=== PATIENT | male | born 1960 | race Caucasian/White ===

== ENCOUNTER 2020-09-15 13:38 | Outpatient (CLI) | payer BC | END 2020-09-15 13:39 | disposition home or self-care (01) | LOC: CSHRAD 13:38 | PROVIDERS: ATTEND Family Medicine | DX: M25.569 Pain in unspecified knee (principal); M13.862 Other specified arthritis, left knee; M13.861 Other specified arthritis, right knee | CPT/HCPCS: 73565 ==

== ENCOUNTER 2023-05-05 10:32 | Inpatient (IN) | payer BC ==
[2023-05-05] MEDS ORDERED: Furosemide 40 MG/4 ML VIAL ONE (11:30)
[2023-05-05] MEDS ORDERED: Nitroglycerin 2% Ointment 1 INCH/1 GM Packet ONE (11:30)
[2023-05-05 11:45] LABS: #Eosinphils 0.1 10x3/uL (0.0-0.5); #Monocytes 0.6 10x3/uL (0.0-1.1); #Neutrophils 6.5 10x3/uL (1.5-8.4); %Basophils 0.5 % (0.0-2.0); %Eosinophils 1.3 % (0.0-6.0); %Lymphocytes 12.6 % (18.0-47.0); %Monocytes 7.4 % (0.0-10.0); %Neutrophils 77.5 % (40.0-75.0); Hematocrit 46.4 % (38.8-50.0); Hemoglobin 14.1 g/dL (13.5-17.5); Mean Corpuscular HGB CONC 30.4 g/dL (32.0-36.0); Mean Corpuscular Hemoglobin 28.3 pg (27.0-33.0); Mean Platelet Volume 9.7 fl (7.4-10.4); Platelet Count 202 10x3/uL (150-450); Red Blood Cell (RBC) Count 4.99 10x6/uL (4.32-5.72); White Blood Cell (WBC) Count 8.4 10x3/uL (3.5-10.5)
[2023-05-05 11:53] LABS: ALT (SGPT) 21 U/L (8-55); AST (SGOT) 18 U/L (5-34); Albumin 4.1 g/dL (3.4-4.8); Alkaline Phosphatase 52 U/L (40-110); Anion Gap 14 mmol/L (10-20); BUN (Urea Nitrogen) 10 mg/dL (8.4-25.7); Bilirubin, Total 0.7 mg/dL (0.2-1.2); Calc. Creatinine Clearance 0 mL/min (70-130); Calcium 8.9 mg/dL (7.8-10.44); Carbon Dioxide 32 mmol/L (23-31); Chloride 101 mmol/L (98-107); Estimated GFR 103; Globulin 2.6 g/dL (2.4-3.5); Glucose 158 mg/dL (80-115); Potassium 4.5 mmol/L (3.5-5.1); Protein, Total 6.7 g/dL (5.8-8.1); Sodium 142 mmol/L (136-145)
[2023-05-05 11:57] LABS: Troponin I Less than 0.010 ng/mL (< 0.028)
[2023-05-05 12:58] LABS: SARS-CoV-2 NAA Rapid Test Not Detected (NotDetected)
[2023-05-05] MEDS ORDERED: Bisacodyl 5 MG TAB PO PRN (13:16)
[2023-05-05] MEDS ORDERED: Senokot S 8.6-50 MG TAB PO PRN (13:16)
[2023-05-05] MEDS ORDERED: HumaLOG 300 UNITS/3 ML VIAL SC PRN (13:41)
[2023-05-05] MEDS ORDERED: Dextrose 5% in Water 1,000 ML IV PRN (16:00)
[2023-05-05] MEDS ORDERED: Dextrose 50% Abboject 50 ML SYRINGE IVP PRN (16:00)
[2023-05-05] MEDS ORDERED: Glucagon 1 MG/ML KIT IM PRN (16:00)
[2023-05-05 16:33] VITALS: BMI 46.2
[2023-05-05] MEDS ORDERED: metFORMIN 500 MG TAB PO SCH ×2 (17:00→18:00)
[2023-05-05] MEDS ORDERED: Furosemide 20 MG/2 ML VIAL SLOW IVP SCH ×2 (17:30)
[2023-05-05] MEDS ORDERED: Acetaminophen 500 MG TAB PO PRN (17:57)
[2023-05-05] MEDS: Atorvastatin Calcium 10 MG TAB PO SCH (20:33)
[2023-05-05] MEDS: Famotidine 20 MG TAB PO SCH (20:33)
[2023-05-06 05:05] LABS: #Eosinphils 0.1 10x3/uL (0.0-0.5); #Monocytes 0.8 10x3/uL (0.0-1.1); #Neutrophils 6.8 10x3/uL (1.5-8.4); %Basophils 0.5 % (0.0-2.0); %Lymphocytes 11.6 % (18.0-47.0); %Monocytes 9.5 % (0.0-10.0); %Neutrophils 76.8 % (40.0-75.0); Hematocrit 48.2 % (38.8-50.0); Mean Corpuscular Hemoglobin 27.5 pg (27.0-33.0); Mean Corpuscular Volume 94.7 fl (81.2-95.1); Mean Platelet Volume 9.7 fl (7.4-10.4); Platelet Count 203 10x3/uL (150-450); RBC Distribution Width 14.7 % (11.5-14.5); Red Blood Cell (RBC) Count 5.09 10x6/uL (4.32-5.72); White Blood Cell (WBC) Count 8.9 10x3/uL (3.5-10.5)
[2023-05-06 05:22] LABS: Anion Gap 15 mmol/L (10-20); BUN (Urea Nitrogen) 11 mg/dL (8.4-25.7); Calc. Creatinine Clearance 224 mL/min (70-130); Calcium 9.2 mg/dL (7.8-10.44); Carbon Dioxide 35 mmol/L (23-31); Chloride 96 mmol/L (98-107); Estimated GFR 101; Glucose 181 mg/dL (80-115); Potassium 4.2 mmol/L (3.5-5.1); Sodium 142 mmol/L (136-145)
[2023-05-06] MEDS: Furosemide 40 MG/4 ML VIAL SLOW IVP SCH ×2 (05:55→14:00)
[2023-05-06] MEDS: Famotidine 20 MG TAB PO SCH ×2 (08:06→20:20)
[2023-05-06] MEDS: Amlodipine 5 MG TAB PO SCH (08:06)
[2023-05-06] MEDS: metFORMIN 500 MG TAB PO SCH ×2 (08:06→17:44)
[2023-05-06] MEDS: Losartan 50 MG TAB PO SCH (08:06)
[2023-05-06] MEDS: Aspirin Chewable 81 MG TAB PO SCH (08:06)
[2023-05-06] MEDS: Empagliflozin 25 MG TAB PO SCH (08:06)
[2023-05-06] MEDS: Fenofibrate Nanocrystallized 145 MG TAB PO SCH (08:06)
[2023-05-06 12:21] LABS: Cardiac Risk 4.2 (Less than 4.5)
[2023-05-06 13:54] LABS: Hemoglobin A1c 7.3 % (4.0-6.0)
[2023-05-06] MEDS: Atorvastatin Calcium 10 MG TAB PO SCH (20:20)
[2023-05-07 05:18] LABS: #Eosinphils 0.1 10x3/uL (0.0-0.5); #Neutrophils 6.1 10x3/uL (1.5-8.4); %Basophils 0.4 % (0.0-2.0); %Eosinophils 1.3 % (0.0-6.0); %Monocytes 11.1 % (0.0-10.0); %Neutrophils 71.7 % (40.0-75.0); Hematocrit 44.5 % (38.8-50.0); Hemoglobin 13.2 g/dL (13.5-17.5); Mean Corpuscular HGB CONC 29.7 g/dL (32.0-36.0); Mean Corpuscular Hemoglobin 27.7 pg (27.0-33.0); Mean Corpuscular Volume 93.5 fl (81.2-95.1); Mean Platelet Volume 9.9 fl (7.4-10.4); Platelet Count 195 10x3/uL (150-450); RBC Distribution Width 14.8 % (11.5-14.5); Red Blood Cell (RBC) Count 4.76 10x6/uL (4.32-5.72); White Blood Cell (WBC) Count 8.5 10x3/uL (3.5-10.5)
[2023-05-07 05:29] LABS: BUN (Urea Nitrogen) 17 mg/dL (8.4-25.7); Calc. Creatinine Clearance 231 mL/min (70-130); Calcium 9.3 mg/dL (7.8-10.44); Estimated GFR 100; Glucose 132 mg/dL (80-115)
[2023-05-07 05:36] LABS: Anion Gap 21 mmol/L (10-20); Carbon Dioxide 33 mmol/L (23-31); Chloride 93 mmol/L (98-107); Potassium 3.9 mmol/L (3.5-5.1); Sodium 143 mmol/L (136-145)
[2023-05-07] MEDS: Furosemide 40 MG/4 ML VIAL SLOW IVP SCH ×2 (06:47→14:50)
[2023-05-07] MEDS: Famotidine 20 MG TAB PO SCH (08:49)
[2023-05-07] MEDS: Aspirin Chewable 81 MG TAB PO SCH (08:49)
[2023-05-07] MEDS: Amlodipine 5 MG TAB PO SCH (08:49)
[2023-05-07] MEDS: metFORMIN 500 MG TAB PO SCH ×2 (08:50→16:17)
[2023-05-07] MEDS: Losartan 50 MG TAB PO SCH (08:50)
[2023-05-07] MEDS: Fenofibrate Nanocrystallized 145 MG TAB PO SCH (08:51)
[2023-05-07] MEDS: Empagliflozin 25 MG TAB PO SCH (08:51)
[2023-05-07] MEDS ORDERED: Iopamidol 370 76% 100 ML VIAL ONE (09:50)
[2023-05-07 16:56] VITALS: BP 131/60; TEMP 99.3
== END 2023-05-07 18:38 | disposition home or self-care (01) | DRG 291 ==
LOC: CSHERS 10:32 → CSHTELE 13:15
PROVIDERS: ADMIT Hospitalist; ATTEND Internal Medicine
DX: I11.0 Hypertensive heart disease with heart failure (principal); I50.21 Acute systolic (congestive) heart failure; J96.01 Acute respiratory failure with hypoxia; Z68.42 Body mass index [BMI] 45.0-49.9, adult; F17.210 Nicotine dependence, cigarettes, uncomplicated; E11.9 Type 2 diabetes mellitus without complications; E66.01 Morbid (severe) obesity due to excess calories; E78.5 Hyperlipidemia, unspecified; Z11.52 Encounter for screening for COVID-19; F12.10 Cannabis abuse, uncomplicated; Z79.899 Other long term (current) drug therapy; Z79.2 Long term (current) use of antibiotics; Z79.84 Long term (current) use of oral hypoglycemic drugs; Z98.890 Other specified postprocedural states
CPT/HCPCS: 36415; 36416; 71045; 71275; 80048; 80053; 80061; 83036; 83880; 84484; 85025; 85379; 93005; 93306; 93970; 94760; 94762; 96374; J1650; J1940; Q9967

== ENCOUNTER 2024-03-29 16:24 | Outpatient (CLI) | payer BC | END 2024-03-29 16:25 | disposition home or self-care (01) | LOC: CSHWCC 16:24 | PROVIDERS: ATTEND Nurse Practitioner Family | DX: I87.322 Chronic venous hypertension (idiopathic) with inflammation of left lower extremity (principal); E11.622 Type 2 diabetes mellitus with other skin ulcer; L97.222 Non-pressure chronic ulcer of left calf with fat layer exposed; I50.22 Chronic systolic (congestive) heart failure; J44.9 Chronic obstructive pulmonary disease, unspecified | CPT/HCPCS: 97597; 97598 ==

== ENCOUNTER 2024-04-26 09:03 | Outpatient (CLI) | payer BC | END 2024-04-26 09:04 | disposition home or self-care (01) | LOC: CSHWCC 09:03 | PROVIDERS: ATTEND Nurse Practitioner Family | DX: I87.322 Chronic venous hypertension (idiopathic) with inflammation of left lower extremity (principal); E11.622 Type 2 diabetes mellitus with other skin ulcer; L97.222 Non-pressure chronic ulcer of left calf with fat layer exposed; I50.22 Chronic systolic (congestive) heart failure; J44.9 Chronic obstructive pulmonary disease, unspecified | CPT/HCPCS: 11042 ==

== ENCOUNTER 2024-05-05 08:57 | Outpatient (CLI) | payer BC | END 2024-05-05 08:58 | disposition home or self-care (01) | LOC: CSHWCC 08:57 | PROVIDERS: ATTEND Nurse Practitioner Family | DX: I87.322 Chronic venous hypertension (idiopathic) with inflammation of left lower extremity (principal); E11.622 Type 2 diabetes mellitus with other skin ulcer; L97.222 Non-pressure chronic ulcer of left calf with fat layer exposed; I50.22 Chronic systolic (congestive) heart failure; J44.9 Chronic obstructive pulmonary disease, unspecified | CPT/HCPCS: 11042 ==

== ENCOUNTER 2024-05-17 10:09 | Outpatient (CLI) | payer BC | END 2024-05-17 10:10 | disposition home or self-care (01) | LOC: CSHWCC 10:09 | PROVIDERS: ATTEND Nurse Practitioner Family | DX: I87.322 Chronic venous hypertension (idiopathic) with inflammation of left lower extremity (principal); E11.622 Type 2 diabetes mellitus with other skin ulcer; L97.222 Non-pressure chronic ulcer of left calf with fat layer exposed; I50.22 Chronic systolic (congestive) heart failure; J44.9 Chronic obstructive pulmonary disease, unspecified | CPT/HCPCS: 11042 ==

== ENCOUNTER 2024-05-31 14:10 | Outpatient (CLI) | payer BC | END 2024-05-31 14:11 | disposition home or self-care (01) | LOC: CSHWCC 14:10 | PROVIDERS: ATTEND Nurse Practitioner Family | DX: I87.322 Chronic venous hypertension (idiopathic) with inflammation of left lower extremity (principal); E11.622 Type 2 diabetes mellitus with other skin ulcer; L97.222 Non-pressure chronic ulcer of left calf with fat layer exposed; I50.22 Chronic systolic (congestive) heart failure; J44.9 Chronic obstructive pulmonary disease, unspecified | CPT/HCPCS: 11042 ==

== ENCOUNTER 2024-06-24 15:24 | Outpatient (CLI) | payer BC | END 2024-06-24 15:25 | disposition home or self-care (01) | LOC: CSHWCC 15:24 | PROVIDERS: ATTEND Nurse Practitioner Family | DX: I87.322 Chronic venous hypertension (idiopathic) with inflammation of left lower extremity (principal); E11.622 Type 2 diabetes mellitus with other skin ulcer; L97.222 Non-pressure chronic ulcer of left calf with fat layer exposed; I50.22 Chronic systolic (congestive) heart failure; J44.9 Chronic obstructive pulmonary disease, unspecified | CPT/HCPCS: 99212; G0463 ==